=== PATIENT | male | born 1950 | race African-American/Black ===

== ENCOUNTER 2017-12-07 11:39 | Inpatient (IN) | payer MEDICARE, OTHER ==
[~2017-12-07] VITALS: Ht 190.5 cm; Wt 101.0 kg
[2017-12-07 12:53] LABS: BASOPHILS # (AUTO) 0.04 x10^3/uL (0-0.1); BASOPHILS % (AUTO) 1 % (0-1); EOSINOPHILS # (AUTO) 0.09 x10^3/uL (0-0.4); EOSINOPHILS % (AUTO) 1 % (1-7); LYMPHOCYTES # (AUTO) 2.28 x10^3/uL (1-3.4); LYMPHOCYTES % (AUTO) 35 % (22-44); MD NO; MEAN CORPUSCULAR HEMOGLOBIN 29.9 pg (27.5-34.5); MEAN CORPUSCULAR HGB CONC 33.1 g/dL (33.2-36.2); MEAN CORPUSCULAR VOLUME 90.4 fL (81-97); MEAN PLATELET VOLUME 9.7 fL (7.4-10.4); MONOCYTES # (AUTO) 0.52 x10^3/uL (0.2-0.8); MONOCYTES % (AUTO) 8 % (2-9); NEUTROPHILS # (AUTO) 3.54 x10^3/uL (1.8-6.8); NEUTROPHILS % (AUTO) 55 % (42-75); PLATELET COUNT 202 x10^3/uL (130-400); RED BLOOD COUNT 5.55 x10^6/uL (4.38-5.82); RED CELL DISTRIBUTION WIDTH 14.7 % (9.4-14.8)
[2017-12-07 13:04] LABS: ALANINE AMINOTRANSFERASE 45 U/L (12-78); ALBUMIN 3.4 g/dL (3.4-5.0); ANION GAP 8 mmol/L (5-15); CALCIUM 8.3 mg/dL (8.5-10.1); CHLORIDE 111 mmol/L (98-107)
[2017-12-07 13:08] LABS: ALKALINE PHOSPHATASE 77 U/L (45-117); BILIRUBIN,TOTAL 0.8 mg/dL (0.2-1.0); TOTAL PROTEIN 6.7 g/dL (6.4-8.2)
[2017-12-07 13:12] LABS: TROPONIN I 0.119 ng/mL (0.000-0.045)
[2017-12-07] MEDS ORDERED: FUROSEMIDE 40 MG/4 ML IV ONE (13:30)
[2017-12-07] MEDS ORDERED: ASPIRIN 81 MG TABLET CHEW PO ONE (13:30)
[2017-12-07] MEDS ORDERED: SODIUM CHLORIDE FLUSH 10ML SYR IVF ONE (13:30)
[2017-12-07] MEDS ORDERED: NITROGLYCERIN OINT 2%, 1GM TP ONE ×2 (13:30→13:44)
[2017-12-07] MEDS ORDERED: ASPIRIN 81 MG TABLET CHEW ONE (13:44)
[2017-12-07] MEDS ORDERED: FUROSEMIDE 40 MG/4 ML ONE (13:44)
[2017-12-07] MEDS ORDERED: POLYETHYLENE GLYCOL 17 GM PACKET PO PRN (14:30)
[2017-12-07] MEDS ORDERED: ONDANSETRON ODT 4 MG PO PRN (14:30)
[2017-12-07] MEDS ORDERED: ONDANSETRON 2MG/ML, 2ML IVPush PRN (14:30)
[2017-12-07] MEDS ORDERED: POTASSIUM CHLORIDE 20 MEQ TAB.ER.PRT PO ONE (14:30)
[2017-12-07] MEDS ORDERED: LABETALOL 5MG/ML, 20ML IVPush PRN (14:30)
[2017-12-07] MEDS ORDERED: HYDROcodone/APAP 5/325 TABLET PO PRN (14:30)
[2017-12-07] MEDS ORDERED: PLEASE ENTER ALLERGIES MC SCH (15:00)
[2017-12-07 15:08] LABS: INTERNATIONAL NORMALIZED RATIO 0.98 (0.93-1.1); PROTHROMBIN TIME 10.1 Seconds (9.6-11.5)
[2017-12-07] MEDS: ENOXAPARIN 40 MG/0.4 ML SQ SCH (15:14)
[2017-12-07] MEDS: POTASSIUM CHLORIDE 20 MEQ TAB.ER.PRT PO SCH ×2 (15:15→16:14)
[2017-12-07] MEDS: FUROSEMIDE 40 MG/4 ML IV SCH ×2 (15:15→16:13)
[2017-12-07] MEDS: LISINOPRIL 20 MG TABLET PO SCH ×2 (15:15→20:06)
[2017-12-07 15:46] VITALS: BP 151/108
[2017-12-07] MEDS ORDERED: LORazepam 1MG TABLET PO ONE (16:00)
[2017-12-07] MEDS ORDERED: MAGNESIUM SULFATE PMX 2GM/50ML 50 ML IV ONE (16:30)
[2017-12-07] MEDS ORDERED: LORazepam 1MG TABLET PO PRN (16:30)
[2017-12-07 17:59] LABS: TROPONIN I 0.112 ng/mL (0.000-0.045)
[2017-12-07] MEDS ORDERED: OMNIPAQUE 350 MG/ML, 100ML BOTTLE ONE (18:43)
[2017-12-07 19:36] LABS: MICROSCOPIC NOT IND
[2017-12-07 19:44] LABS: CULTURE INDICATED? NO
[2017-12-07 19:48] LABS: AMPHETAMINE SCREEN, URINE Negative (Negative); BARBITURATE SCREEN, URINE Negative (Negative); BENZODIAZEPINE SCREEN, URINE Negative (Negative); CANNABINOID SCREEN, URINE Negative (Negative); COCAINE SCREEN, URINE Positive (Negative); METHADONE SCREEN, URINE Negative (Negative); OPIATE SCREEN, URINE Negative (Negative)
[2017-12-07 20:02] VITALS: BP 135/96
[2017-12-07] MEDS: AMLODIPINE 5 MG TABLET PO SCH (20:06)
[2017-12-08 01:35] VITALS: BP 128/79
[2017-12-08 05:52] LABS: MEAN CORPUSCULAR HEMOGLOBIN 30.3 pg (27.5-34.5); MEAN CORPUSCULAR HGB CONC 33.6 g/dL (33.2-36.2); MEAN CORPUSCULAR VOLUME 90.2 fL (81-97); MEAN PLATELET VOLUME 10.3 fL (7.4-10.4); PLATELET COUNT 191 x10^3/uL (130-400); RED BLOOD COUNT 5.71 x10^6/uL (4.38-5.82); RED CELL DISTRIBUTION WIDTH 14.8 % (9.4-14.8)
[2017-12-08] MEDS ORDERED: ASPIRIN 81 MG TABLET CHEW PO SCH (06:00)
[2017-12-08 06:02] LABS: ALBUMIN 3.4 g/dL (3.4-5.0); ANION GAP 9 mmol/L (5-15); CALCIUM 8.7 mg/dL (8.5-10.1); CHLORIDE 107 mmol/L (98-107)
[2017-12-08 06:08] LABS: ALANINE AMINOTRANSFERASE 44 U/L (12-78); ALKALINE PHOSPHATASE 74 U/L (45-117); BILIRUBIN,TOTAL 0.9 mg/dL (0.2-1.0); CREATININE 1.33 mg/dL (0.7-1.3); TOTAL PROTEIN 7.3 g/dL (6.4-8.2); TROPONIN I 0.112 ng/mL (0.000-0.045)
[2017-12-08 06:32] LABS: MD YES
[2017-12-08 06:36] LABS: BASOS#(MANUAL) 0.25 x10^3/uL (0-0.1); BASOS% (MANUAL) 4 % (0-1); EOS#(MANUAL) 0.25 x10^3/uL (0.0-0.4); EOS% (MANUAL) 4 % (1-7); LYMPH#(MANUAL) 2.58 x10^3/uL (1-3.4); LYMPHS% (MANUAL) 41 % (22-44); MONOS#(MANUAL) 0.44 x10^3/uL (0.3-2.7); MONOS% (MANUAL) 7 % (2-9); SEG#(MANUAL) 2.77 x10^3/uL (1.8-6.8); SEGS% (MANUAL) 44 % (42-75)
[2017-12-08 06:37] LABS: <PLATELET ESTIMATE> ADEQUATE; <PLT MORPHOLOGY> NORMAL PLT MORPH; ANISOCYTOSIS 1+
[2017-12-08 07:35] VITALS: BP 135/93
[2017-12-08] MEDS: SENNA/DOCUSATE TABLET PO SCH ×3 (08:48→08:59)
[2017-12-08] MEDS: POTASSIUM CHLORIDE 20 MEQ TAB.ER.PRT PO SCH (08:48)
[2017-12-08] MEDS: FUROSEMIDE 40 MG/4 ML IV SCH (08:48)
[2017-12-08] MEDS: LISINOPRIL 20 MG TABLET PO SCH (08:49)
[2017-12-08] MEDS: AMLODIPINE 5 MG TABLET PO SCH (08:49)
[2017-12-08] MEDS ORDERED: SPIRONOLACTONE 25 MG TABLET PO SCH (09:00)
[2017-12-08] MEDS: ENOXAPARIN 40 MG/0.4 ML SQ SCH (14:39)
[2017-12-08 14:45] VITALS: BP 129/90
[2017-12-08] MEDS ORDERED: ATOR10TA PO (16:40)
[2017-12-08] MEDS ORDERED: LISI-170 PO (16:40)
[2017-12-08] MEDS ORDERED: POTA20TA14 PO (16:40)
[2017-12-08] MEDS ORDERED: FURO-92 PO (16:40)
[2017-12-08] MEDS ORDERED: SPIR25TA PO (16:40)
[2017-12-08] MEDS ORDERED: ASPI-515 PO (16:40)
[2017-12-08] MEDS ORDERED: CARV3.1212 PO (16:40)
== END 2017-12-08 18:31 | disposition home or self-care (01) | DRG 280 ==
LOC: ED 14:11 → EDIP 14:25 → 5SO 14:54
PROVIDERS: ADMIT Hospitalist; ATTEND Family Medicine
DX: I11.0 Hypertensive heart disease with heart failure (principal); J96.01 Acute respiratory failure with hypoxia; I21.A1 Myocardial infarction type 2; B19.20 Unspecified viral hepatitis C without hepatic coma; I50.23 Acute on chronic systolic (congestive) heart failure; I42.9 Cardiomyopathy, unspecified; E78.00 Pure hypercholesterolemia, unspecified; F11.10 Opioid abuse, uncomplicated; F14.10 Cocaine abuse, uncomplicated; F15.10 Other stimulant abuse, uncomplicated; F17.210 Nicotine dependence, cigarettes, uncomplicated; I50.811 Acute right heart failure; G40.909 Epilepsy, unspecified, not intractable, without status epilepticus; R73.9 Hyperglycemia, unspecified; I16.0 Hypertensive urgency; I27.20 Pulmonary hypertension, unspecified; Z91.14 Patient's other noncompliance with medication regimen
CPT/HCPCS: 36415; 71046; 71275; 80053; 80307; 81003; 83735; 83880; 84100; 84439; 84484; 85025; 85610; 93005; 93306; 96374; 99406; J1650; J1940; Q9967; J3475

== ENCOUNTER 2018-04-30 11:13 | Emergency (ER) | payer MEDICARE ==
[~2018-04-30] VITALS: Ht 190.5 cm; Wt 133.0 kg
[~2018-04-30 11:13] MED LIST: ASPI-515 PO; ATOR10TA PO; CARV3.1212 PO; FURO-92 PO; LISI-170 PO; POTA20TA14 PO; SPIR25TA PO
[2018-04-30 11:17] VITALS: BP 110/78
[2018-04-30 12:04] LABS: ALANINE AMINOTRANSFERASE 41 U/L (12-78); ALBUMIN 3.2 g/dL (3.4-5.0); ANION GAP 7 mmol/L (5-15); CALCIUM 8.3 mg/dL (8.5-10.1); CHLORIDE 114 mmol/L (98-107); CREATININE 1.29 mg/dL (0.7-1.3)
[2018-04-30 12:08] LABS: ALKALINE PHOSPHATASE 71 U/L (45-117); BASOPHILS # (AUTO) 0.05 x10^3/uL (0-0.1); BASOPHILS % (AUTO) 1 % (0-1); BILIRUBIN,TOTAL 0.8 mg/dL (0.2-1.0); EOSINOPHILS # (AUTO) 0.08 x10^3/uL (0-0.4); EOSINOPHILS % (AUTO) 1 % (1-7); LYMPHOCYTES % (AUTO) 28 % (22-44); MD NO; MEAN CORPUSCULAR HEMOGLOBIN 30.9 pg (27.5-34.5); MEAN CORPUSCULAR HGB CONC 33.6 g/dL (33.2-36.2); MEAN CORPUSCULAR VOLUME 91.9 fL (81-97); MEAN PLATELET VOLUME 10.1 fL (7.4-10.4); MONOCYTES # (AUTO) 0.59 x10^3/uL (0.2-0.8); MONOCYTES % (AUTO) 8 % (2-9); NEUTROPHILS # (AUTO) 4.93 x10^3/uL (1.8-6.8); NEUTROPHILS % (AUTO) 63 % (42-75); PLATELET COUNT 206 x10^3/uL (130-400); RED BLOOD COUNT 5.16 x10^6/uL (4.38-5.82); RED CELL DISTRIBUTION WIDTH 14.6 % (9.4-14.8); TOTAL PROTEIN 6.7 g/dL (6.4-8.2); TROPONIN I 0.044 ng/mL (0.000-0.045)
== END 2018-04-30 13:47 | disposition home or self-care (01) ==
LOC: ED 13:44
DX: I50.9 Heart failure, unspecified (principal); I25.2 Old myocardial infarction; I11.0 Hypertensive heart disease with heart failure
CPT/HCPCS: 36415; 71045; 80053; 83880; 84484; 85025; 93005; 99285